=== PATIENT | female | born 1995 | race Caucasian/White ===

== ENCOUNTER 2017-07-24 22:12 | Emergency (ER) | payer OTHER, BC ==
[2017-07-24 23:04] VITALS: BP 118/74
[2017-07-25] MEDS ORDERED: LIDOCAINE VISCOUS 2% ONE (00:07)
[2017-07-25] MEDS ORDERED: LIDOCAINE VISCOUS 2% PO ONE (00:08)
[2017-07-25] MEDS ORDERED: HYDROGEN PEROXIDE ONE (00:27)
[2017-07-25] MEDS ORDERED: HYDROGEN PEROXIDE TP ONE (00:30)
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
[2017-07-25] MEDS ORDERED: TYLENOL PO ONE (01:25)
[2017-07-25] MEDS ORDERED: TYLENOL ONE (01:25)
== END 2017-07-25 01:45 | disposition home or self-care (01) ==
LOC: EDBD → ED 22:12
DX: S01.81XA Laceration without foreign body of other part of head, initial encounter (principal); S01.511A Laceration without foreign body of lip, initial encounter; Z88.0 Allergy status to penicillin; V59.40XA Driver of pick-up truck or van injured in collision with unspecified motor vehicles in traffic accident, initial encounter; Y93.89 Activity, other specified; Y92.89 Other specified places as the place of occurrence of the external cause; Y99.8 Other external cause status
CPT/HCPCS: 99282